=== PATIENT | female | born 2000 | race Caucasian/White ===

== ENCOUNTER 2024-07-04 10:36 | Emergency (ER) | payer OTHER ==
[2024-07-04] MEDS ORDERED: Acetaminophen 325 MG TAB ONE (11:05)
== END 2024-07-04 12:48 | disposition home or self-care (01) ==
LOC: CSHERS 10:36
DX: O20.0 Threatened abortion (principal); Z3A.01 Less than 8 weeks gestation of pregnancy
CPT/HCPCS: 76801